=== PATIENT | male | born 1945 ===

== ENCOUNTER 2019-10-22 07:58 | Day surgery (SDC) | payer BC, MEDICARE ==
[~2019-10-22 07:58] MED LIST: Buffered Lidocaine 1% SYRIN* 1 ML/SYRINGE INTRADERM ONE
[2019-10-22] MEDS ORDERED: Lidocaine 1% MPF ** 5 ML VIAL ONE (09:37)
[2019-10-22] MEDS ORDERED: Lidocaine 2% w/ EPI 1:200,000* 20 ML SDV VIAL ONE (09:37)
[2019-10-22] MEDS ORDERED: Phenylephrine OPHTH SOL 2.5%* 2 ML ONE (09:37)
[2019-10-22] MEDS ORDERED: Cyclopentolate 1% OPTH.SOL* 2 ML BTL ONE (09:37)
[2019-10-22] MEDS ORDERED: acetaZOLAMIDE TAB* 250 MG ONE (09:37)
[2019-10-22] MEDS ORDERED: Neomycin/Polymy/Dex OPTH.SUSP* MAXITROL 0.1% 5 ML ONE (09:37)
[2019-10-22] MEDS ORDERED: Ketorolac 0.5% OPHTH (NF) 0.5 % 5 ML BTL ONE (09:37)
[2019-10-22] MEDS ORDERED: Proparacaine 0.5% OPHTH.SOL* 15 ML BTL ONE (09:37)
[2019-10-22] MEDS ORDERED: Povidone Iodine 5% OPTH* 30 ML BTL ONE (09:37)
[2019-10-22] MEDS ORDERED: Midazolam* 1 MG/ML 2 ML VIAL (2 MG) ONE (10:00)
[2019-10-22 11:36] VITALS: BP 103/64
--- NOTE | 2019-10-22 16:42 | OP ---
DATE OF OPERATION: 10/22/19 [facility] DATE OF : 49 SURGEON: Angel Coppola M.D. PREOPERATIVE DIAGNOSIS: Cataract, right eye. POSTOPERATIVE DIAGNOSIS: Cataract, right eye. OPERATIVE PROCEDURE: Extracapsular cataract extraction with intraocular lens implant right eye. DESCRIPTION OF PROCEDURE: The patient was brought to the operating room after being given 1/2% Alcaine with epinephrine drops in the preoperative area. The eye was prepped and draped in the usual sterile fashion. Sterile drape and eyelid speculum were placed. Again, topical 1/2% Alcaine with epinephrine was given. A paracentesis incision was made at the 9 o'clock position with the No.75 blade. Clear cornea incision 2.2 x 2.2-mm was created at the 12 o'clock position starting at the anterior limbus using the 2.2-mm keratome. The anterior chamber was irrigated with 0.4 mL of 1% non-preservative intracameral lidocaine and filled with DisCoVisc. A capsulorrhexis was completed using the cystotome and the Utrata forceps. Hydrodissection was performed with balanced salt solution. The lens nucleus was removed with the Phacoemulsification handpiece without incident. Cortex was removed with the irrigation-aspiration handpiece. The capsular bag was re-inflated using DisCoVisc and an SN60WF 22.5 implant was inserted with the shooter. Pupil was very small, so a Malyugin ring was used to dilate the pupil prior to capsulorrhexis, removed after insertion of the lens. The irrigation-aspiration handpiece was used to remove all residual DisCoVisc. The eye was refilled with balanced salt solution and the wound checked and found to be watertight. Topical Maxitrol drops were given. Indication: Complex cataract surgery, pupil abnormalities requiring pupil dilation device. [id number]/[facility] #: [id number] MTDTrey
== END 2019-10-22 11:29 | disposition home or self-care (01) ==
LOC: OREAST 07:58
PROVIDERS: ATTEND Specialist
DX: H25.811 Combined forms of age-related cataract, right eye (principal); H21.561 Pupillary abnormality, right eye; E11.9 Type 2 diabetes mellitus without complications; Z79.84 Long term (current) use of oral hypoglycemic drugs; I10 Essential (primary) hypertension; Z85.820 Personal history of malignant melanoma of skin; F17.210 Nicotine dependence, cigarettes, uncomplicated; E78.5 Hyperlipidemia, unspecified
CPT/HCPCS: A9270-GY; J2250; V2632

== ENCOUNTER 2019-10-29 07:48 | Day surgery (SDC) | payer BC, MEDICARE ==
[~2019-10-29 07:48] MED LIST changes: +Acetaminophen TAB* 325 MG PO PRN
[2019-10-29] MEDS ORDERED: Insulin REGULAR(*) 1 UNITS UNIT ONE (08:38)
[2019-10-29] MEDS ORDERED: fentaNYL* 50 MCG/ML 2 ML VIAL (100 MCG VIAL) ONE (08:41)
[2019-10-29] MEDS ORDERED: Midazolam* 1 MG/ML 5 ML VIAL (5 MG) ONE (08:41)
[2019-10-29 10:55] VITALS: BP 116/65
[2019-10-29] MEDS ORDERED: Proparacaine 0.5% OPHTH.SOL* 15 ML BTL ONE (11:14)
[2019-10-29] MEDS ORDERED: Lidocaine 1% MPF ** 5 ML VIAL ONE (11:14)
[2019-10-29] MEDS ORDERED: Neomycin/Polymy/Dex OPTH.SUSP* MAXITROL 0.1% 5 ML ONE (11:14)
[2019-10-29] MEDS ORDERED: Ketorolac 0.5% OPHTH (NF) 0.5 % 5 ML BTL ONE (11:14)
[2019-10-29] MEDS ORDERED: Lidocaine 2% w/ EPI 1:200,000* 20 ML SDV VIAL ONE (11:14)
[2019-10-29] MEDS ORDERED: Phenylephrine OPHTH SOL 2.5%* 2 ML ONE (11:14)
[2019-10-29] MEDS ORDERED: Povidone Iodine 5% OPTH* 30 ML BTL ONE (11:14)
[2019-10-29] MEDS ORDERED: Cyclopentolate 1% OPTH.SOL* 2 ML BTL ONE (11:14)
[2019-10-29] MEDS ORDERED: acetaZOLAMIDE TAB* 250 MG ONE (11:14)
--- NOTE | 2019-10-29 20:16 | OP ---
DATE OF OPERATION: 10/29/19 [facility] DATE OF : 49 SURGEON: Angel Coppola M.D. PREOPERATIVE DIAGNOSIS: Cataract, left eye. POSTOPERATIVE DIAGNOSIS: Cataract, left eye. OPERATIVE PROCEDURE: Extracapsular cataract extraction with intraocular lens implant, left eye. DESCRIPTION OF PROCEDURE: The patient was brought to the operating room after being given 1/2% Alcaine with epinephrine drops in the preoperative area. The eye was prepped and draped in the usual sterile fashion. Sterile drape and eyelid speculum were placed. Again, topical 1/2% Alcaine with epinephrine was given. A paracentesis incision was made at the 3 o'clock position with the No.75 blade. Clear cornea incision 2.2 x 2.2-mm was created at the 6 o'clock position starting at the anterior limbus using the 2.2-mm keratome. The anterior chamber was irrigated with 0.4 mL of 1% non-preservative intracameral lidocaine and filled with DisCoVisc. A capsulorrhexis was completed using the cystotome and the Utrata forceps. Hydrodissection was performed with balanced salt solution. The lens nucleus was removed with the Phacoemulsification handpiece without incident. Cortex was removed with the irrigation-aspiration handpiece. The capsular bag was re-inflated using DisCoVisc and an [id number] 23 implant was inserted with the shooter. The irrigation-aspiration handpiece was used to remove all residual DisCoVisc. The eye was refilled with balanced salt solution and the wound checked and found to be watertight. Topical Maxitrol drops were given. [id number]/[facility] #: [id number] MTDD
== END 2019-10-29 10:40 | disposition home or self-care (01) ==
LOC: OREAST 07:48
PROVIDERS: ATTEND Specialist
DX: H25.812 Combined forms of age-related cataract, left eye (principal); E11.9 Type 2 diabetes mellitus without complications; Z79.84 Long term (current) use of oral hypoglycemic drugs; I10 Essential (primary) hypertension; Z85.820 Personal history of malignant melanoma of skin; F17.210 Nicotine dependence, cigarettes, uncomplicated
CPT/HCPCS: A9270-GY; J2250; J3010; V2632